=== PATIENT | female | born 1950 | race Caucasian/White ===

== ENCOUNTER 2019-05-03 08:28 | Outpatient (CLI) | payer MEDICARE ==
--- NOTE | 2019-05-03 11:12 | PET ---
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 Exam is requested for initial staging. COMPARISON: None. TECHNIQUE: PET scanning with CT attenuation is performed from the base of the brain through the proximal thighs following the intravenous administration of 7.4 millicuries F18 fluorodeoxyglucose in the left antecu bital fossa. FINDINGS: There is increased uptake in the right breast mass with an SUV of 14.6. A hypermetabolic right axilla ry lymph node is noted with an SUV of 6. No moe hypermetabolism is seen in the neck, chest, left axilla, abdomen or pelvis. No hypermetaboli c liver or adrenal lesions are seen. There is a focus of mildly increased uptake in the proximal shaft of the left femur with an SUV of 2. 4. There is physiologic activity in the GI and tracts, in the heart, and in the visualized portions o f the brain. The CT scan used for attenuation correction demonstrates no evidence of pleural effusions or ascites. IMPRESSION: 1. Right breast malignancy with right axillary lymph moe metastasis. 2. No evidence of distal metastases. POS: RICHA
== END 2019-05-03 08:29 | disposition home or self-care (01) ==
LOC: PET 08:28
PROVIDERS: ATTEND Internal Medicine Hematology & Oncology
DX: C50.911 Malignant neoplasm of unspecified site of right female breast (principal); C77.3 Secondary and unspecified malignant neoplasm of axilla and upper limb lymph nodes
CPT/HCPCS: 78815; A9552

== ENCOUNTER 2019-08-10 09:07 | Outpatient (CLI) | payer MEDICARE ==
--- NOTE | 2019-08-10 11:48 | PET ---
Radionucleotide PET scan with CT attenuation correction HISTORY: Right breast cancer upper outer quadrant. Restaging. COMPARISON: 05/03/2019. FINDINGS: Physiologic uptake throughout the enteric system and along each urinary tract. Muscular upt katie along the right posterior paraspinous musculature. Heterogeneous uptake throughout the skeleton is likely related to bone marrow reaction to therapy. At the right breast, the soft tissue density mass is much smaller. No abnormal uptake is present in t he right breast or at the right axilla where a lymph node had shown increased uptake on the prior exam. No abnormal areas of uptake are apparent elsewhere. The nondiagnostic CT attenuation correction images show calcification within the arterial structures. There are degenerative changes lumbar spine. IMPRESSION: Complete response. No residual hypermetabolic activity at the right breast. No evidence o f metastatic disease. Atherosclerosis.
== END 2019-08-10 09:08 | disposition home or self-care (01) ==
LOC: PET 09:07
PROVIDERS: ATTEND Internal Medicine Hematology & Oncology
DX: C50.411 Malignant neoplasm of upper-outer quadrant of right female breast (principal)
CPT/HCPCS: 78815; A9552

== ENCOUNTER 2021-01-09 14:02 | Outpatient (CLI) | payer MEDICARE | END 2021-01-09 14:03 | disposition home or self-care (01) | LOC: CTENTCT 14:02 | PROVIDERS: ATTEND Internal Medicine Hematology & Oncology | DX: J32.8 Other chronic sinusitis (principal) | CPT/HCPCS: 70486 ==